=== PATIENT | male | born 1980 | race Two or more races ===

== ENCOUNTER 2020-10-26 16:52 | Inpatient (IN) | payer BC, OTHER ==
[~2020-10-26] VITALS: Ht 175.3 cm; Wt 99.4 kg
[2020-10-26] MEDS ORDERED: SODIUM CHLORIDE 0.9% 1,000 ML IV ONE ×2 (17:00)
[2020-10-26] MEDS ORDERED: IOHEXOL 300 MG/ML 100ML BOTTLE IJ ONE (17:37)
[2020-10-26 17:53] LABS: Basophils # (auto) 0.1 10 ^3/uL (0-0.2); Eosinophils # (auto) 0.1 10 ^3/uL (0-0.8); Lymphocytes # (auto) 1.4 10 ^3/uL (0.4-5.4); White Blood Cell 5.4 10^3/uL (4.4-10.8)
[2020-10-26 17:55] LABS: Basophils % (auto) 1.3 % (0.0-2.0); Eosinophils % (auto) 0.9 % (0.0-7.0); Hematocrit 13.2 % (41.0-53.0); Lymphocytes % (auto) 25.3 % (10.0-50.0); Mean Corpuscular Hemoglobin 14.1 pg (28.0-32.0); Mean Corpuscular Hgb Conc. 27.7 g/dL (32.0-36.0); Mean Corpuscular Volume 50.9 fL (80.0-100.0); Monocytes # (auto) 0.2 10 ^3/uL (0-1.3); Monocytes % (auto) 4.3 % (0.0-12.0); Neutrophils # (auto) 3.7 10 ^3/uL (1.6-8.6); Neutrophils % (auto) 68.2 % (37.0-80.0); Nucleated Red Blood Cells % 0.7 %; Red Blood Cells 2.59 10^6/uL (4.5-5.90)
[2020-10-26 18:07] LABS: Urine Bacteria NONE SEEN /hpf (None Seen); Urine Blood Negative /uL (Negative); Urine Specific Gravity 1.013 (1.001-1.035); Urine WBC <1 /hpf (0 - 3)
[2020-10-26 18:08] LABS: Alanine Aminotransferase 22 U/L (16-61); Albumin 3.5 g/dL (3.4-5.0); Anion Gap 7 (5-15); Aspartate Aminotransferase 16 U/L (15-37); Blood Urea Nitrogen 11 mg/dL (7-18); Calcium 8.1 mg/dL (8.5-10.1); Carbon Dioxide 21 mmol/L (21-32); Chloride 109 mmol/L (98-107); GFR African American 117 mL/min; GFR Non-African American 97 mL/min; Glucose 82 mg/dL (74-106); Potassium 3.9 mmol/L (3.5-5.1); Sodium 137 mmol/L (136-145)
[2020-10-26 18:11] LABS: Hemoglobin 3.7 g/dL (13.5-17.5)
[2020-10-26 18:13] LABS: Alkaline Phosphatase 29 U/L (45-117); Total Protein 6.5 g/dL (6.4-8.2)
[2020-10-26 18:25] LABS: INR 1.12 (0.9-1.15)
[2020-10-26 18:26] LABS: Partial Thromboplastin Time < 20.0 sec (23.0-31.2)
[2020-10-26] MEDS ORDERED: ACETAMINOPHEN 500 MG TAB PO PRN (19:00)
[2020-10-26] MEDS ORDERED: NITROGLYCERIN 0.4 MG SL TAB SL PRN (19:00)
[2020-10-26] MEDS ORDERED: MORPHINE SULFATE INJECTION 2 MG/ML SYRG IV PRN (19:00)
[2020-10-26] MEDS ORDERED: PANTOPRAZOLE 40 MG/10 ML VIAL INJ IV ONE (19:00)
[2020-10-26] MEDS: SODIUM CHLORIDE 0.9% 1,000 ML IV SCH (19:07)
[2020-10-26 20:52] VITALS: BP 123/44
[2020-10-26 21:18] VITALS: BP 135/45
[2020-10-26] MEDS: traMADol HCL 50 MG TAB PO PRN (21:26)
[2020-10-26 23:51] VITALS: BP 119/60
[2020-10-26 23:55] VITALS: BP 119/60
[2020-10-27] MEDS: PROMETHAZINE HCL 25 MG/ML 1ML IV PRN ×2 (00:10→06:24)
[2020-10-27 03:00] VITALS: BP 121/70
[2020-10-27 04:08] LABS: Hematocrit 17.8 % (41.0-53.0)
[2020-10-27 04:13] LABS: Hemoglobin 5.7 g/dL (13.5-17.5)
[2020-10-27 05:48] VITALS: BP 138/66
[2020-10-27 06:17] VITALS: BP 118/56
[2020-10-27] MEDS: SODIUM CHLORIDE 0.9% 1,000 ML IV SCH ×3 (06:24→18:38)
[2020-10-27 09:05] VITALS: BP 122/63
[2020-10-27 09:20] VITALS: BP 134/75
[2020-10-27] MEDS: PANTOPRAZOLE 40 MG TAB PO SCH ×2 (10:38→22:02)
[2020-10-27] MEDS ORDERED: GOLYTELY 4L KIT PO ONE (11:00)
[2020-10-27] MEDS ORDERED: METH750T22 PO (11:07)
[2020-10-27] MEDS ORDERED: LOSA-69 PO (11:07)
[2020-10-27] MEDS ORDERED: LISI20TA28 PO (11:07)
[2020-10-27] MEDS: traMADol HCL 50 MG TAB PO PRN (11:52)
[2020-10-27 13:14] LABS: Hemoglobin 7.9 g/dL (13.5-17.5)
[2020-10-27 13:16] LABS: Hematocrit 24.1 % (41.0-53.0)
[2020-10-27] MEDS: HYDROcodone-ACET 7.5/325MG TAB PO PRN (15:59)
[2020-10-27 22:00] VITALS: BP 143/90
[2020-10-28] VITALS (8 sets, daily range): BP systolic 120–141; BP diastolic 50–75
[2020-10-28] MEDS: SODIUM CHLORIDE 0.9% 1,000 ML IV SCH ×3 (03:38→18:40)
[2020-10-28] MEDS ORDERED: LIDOCAINE 2% (LOCAL ANESTH.) PF 5ml SDV ONE (08:23)
[2020-10-28] MEDS ORDERED: ONDANSETRON HCL 4 MG/2 ML VIAL ONE (08:23)
[2020-10-28] MEDS ORDERED: MIDAZOLAM HCL 2MG/2ML 2ml VIAL (1mg/ml) ONE (08:23)
[2020-10-28] MEDS ORDERED: fentaNYL CITRATE 100 MCG/2 ML VL ONE (08:23)
[2020-10-28] MEDS ORDERED: GLYCOPYRROLATE 0.2 MG/ML 1ML VIAL ONE (08:23)
[2020-10-28] MEDS ORDERED: PROPOFOL 10 MG/ML 20 ML IV ONE (08:23)
[2020-10-28] MEDS ORDERED: ONDANSETRON HCL 4 MG/2 ML VIAL IV PRN (09:15)
[2020-10-28] MEDS ORDERED: HYDROmorphone HCL 2 MG/ML VL IV PRN (09:15)
[2020-10-28] MEDS: HYDROcodone-ACET 7.5/325MG TAB PO PRN ×2 (11:34→17:44)
[2020-10-28 12:16] LABS: Eosinophils # (auto) 0.1 10 ^3/uL (0-0.8); Lymphocytes # (auto) 0.9 10 ^3/uL (0.4-5.4); Mean Corpuscular Volume 65.6 fL (80.0-100.0); Nucleated Red Blood Cells % 2.3 %; Red Blood Cells 3.24 10^6/uL (4.5-5.90); White Blood Cell 4.7 10^3/uL (4.4-10.8)
[2020-10-28 12:17] LABS: Basophils # (auto) 0 10 ^3/uL (0-0.2); Basophils % (auto) 0.9 % (0.0-2.0); Eosinophils % (auto) 2.9 % (0.0-7.0); Hematocrit 21.2 % (41.0-53.0); Lymphocytes % (auto) 19.5 % (10.0-50.0); Mean Corpuscular Hemoglobin 21.5 pg (28.0-32.0); Mean Corpuscular Hgb Conc. 32.8 g/dL (32.0-36.0); Monocytes # (auto) 0.3 10 ^3/uL (0-1.3); Monocytes % (auto) 5.8 % (0.0-12.0); Neutrophils # (auto) 3.3 10 ^3/uL (1.6-8.6); Neutrophils % (auto) 70.9 % (37.0-80.0)
[2020-10-28 12:20] LABS: Red Cell Distribution Width 36.8 % (11.8-14.3)
[2020-10-28 12:31] LABS: Albumin 3.3 g/dL (3.4-5.0); Calcium 7.3 mg/dL (8.5-10.1); Potassium 3.8 mmol/L (3.5-5.1)
[2020-10-28 12:35] LABS: BUN/Creatinine Ratio 8.3; Bilirubin, Total 1.3 mg/dL (0.2-1.0); Total Protein 5.8 g/dL (6.4-8.2)
[2020-10-29] MEDS: SODIUM CHLORIDE 0.9% 1,000 ML IV SCH (00:43)
[2020-10-29 05:06] VITALS: BP 142/73
[2020-10-29 05:43] LABS: Hemoglobin 7.5 g/dL (13.5-17.5); Lymphocytes # (auto) 1.4 10 ^3/uL (0.4-5.4); Mean Corpuscular Volume 68.1 fL (80.0-100.0)
[2020-10-29 05:47] LABS: Basophils # (auto) 0 10 ^3/uL (0-0.2); Basophils % (auto) 1.2 % (0.0-2.0); Eosinophils # (auto) 0.2 10 ^3/uL (0-0.8); Hematocrit 22.5 % (41.0-53.0); Lymphocytes % (auto) 35.3 % (10.0-50.0); Mean Corpuscular Hemoglobin 22.8 pg (28.0-32.0); Mean Corpuscular Hgb Conc. 33.5 g/dL (32.0-36.0); Monocytes # (auto) 0.2 10 ^3/uL (0-1.3); Monocytes % (auto) 6.1 % (0.0-12.0); Neutrophils % (auto) 51.4 % (37.0-80.0); Nucleated Red Blood Cells % 0.7 %; Red Blood Cells 3.31 10^6/uL (4.5-5.90)
[2020-10-29 05:58] LABS: Red Cell Distribution Width 36.3 % (11.8-14.3)
[2020-10-29] MEDS: HYDROcodone-ACET 7.5/325MG TAB PO PRN (08:01)
[2020-10-29 09:00] VITALS: BP 139/67
== END 2020-10-29 12:10 | disposition home or self-care (01) | DRG 378 ==
LOC: ER 16:52 → EDBD 16:52 → TELE 18:51 → WEST WING 10-27 14:25
PROVIDERS: ADMIT Internal Medicine; ATTEND Family Medicine
PROC: 30233N1 Transfusion of Nonautologous Red Blood Cells into Peripheral Vein, Percutaneous Approach (ICD-10-PCS; principal; 2020-10-26)
PROC: 0DBM8ZZ Excision of Descending Colon, Via Natural or Artificial Opening Endoscopic (ICD-10-PCS; 2020-10-28)
PROC: 0DJ08ZZ Inspection of Upper Intestinal Tract, Via Natural or Artificial Opening Endoscopic (ICD-10-PCS; 2020-10-28 08:29)
DX: K57.31 Diverticulosis of large intestine without perforation or abscess with bleeding (principal); D62 Acute posthemorrhagic anemia; I10 Essential (primary) hypertension; K40.20 Bilateral inguinal hernia, without obstruction or gangrene, not specified as recurrent; K63.5 Polyp of colon; K64.8 Other hemorrhoids; Z83.3 Family history of diabetes mellitus; Z87.19 Personal history of other diseases of the digestive system; Z20.822 Contact with and (suspected) exposure to COVID-19; E66.9 Obesity, unspecified; Z71.3 Dietary counseling and surveillance; Z68.33 Body mass index [BMI] 33.0-33.9, adult
CPT/HCPCS: 36415; 71045; 74177; 80053; 81001; 82270; 82378; 84484; 85014; 85018; 85025; 85045; 85049; 85610; 85652; 85730; 86850; 86900; 86901; 86920; 87426; 93005; 96360; 96361; C9113; G0378; J2001; J2250; J2405; J2704

== ENCOUNTER 2023-02-16 15:37 | Inpatient (IN) | payer BC, MEDICAID ==
[~2023-02-16] VITALS: Ht 175.3 cm; Wt 101.8 kg
[2023-02-16] MEDS: SODIUM CHLORIDE 0.9% 1,000 ML IV SCH (05:00)
[~2023-02-16 15:37] MED LIST: LISI20TA56 PO; LOSA50TA46 PO; METH-1182 PO
[2023-02-16 16:32] LABS: Alanine Aminotransferase 21 U/L (7-40); Albumin 4.4 g/dL (3.2-4.8); Alkaline Phosphatase 44 U/L (46-116); Anion Gap 6 (5-15); Aspartate Aminotransferase 16 U/L (13-40); BUN/Creatinine Ratio 13.8 (10.0-20.0); Blood Urea Nitrogen 12 mg/dL (9-23); Calcium 8.8 mg/dL (8.5-10.1); Carbon Dioxide 25 mmol/L (20-30); Chloride 108 mmol/L (98-107); Glucose 86 mg/dL (74-106); Potassium 4.4 mmol/L (3.5-5.1); Sodium 139 mmol/L (136-145)
[2023-02-16 16:33] LABS: Bilirubin, Total 0.8 mg/dL (0.2-1.0); Total Protein 6.3 g/dL (5.7-8.2)
[2023-02-16 16:48] LABS: Basophils # (auto) 0.1 10 ^3/uL (0-0.2); Basophils % (auto) 1.5 % (0.0-2.0); Eosinophils # (auto) 0.1 10 ^3/uL (0-0.8); Eosinophils % (auto) 2.3 % (0.0-7.0); Hematocrit 22.4 % (41.0-53.0); Mean Corpuscular Hemoglobin 22.5 pg (28.0-32.0); Mean Corpuscular Hgb Conc. 29.2 g/dL (32.0-36.0); Mean Corpuscular Volume 76.9 fL (80.0-100.0); Monocytes # (auto) 0.4 10 ^3/uL (0-1.3); Monocytes % (auto) 8.3 % (0.0-12.0); Neutrophils # (auto) 2.7 10 ^3/uL (1.6-8.6); Neutrophils % (auto) 63.9 % (37.0-80.0); Nucleated Red Blood Cells % 0.6 %; Red Blood Cells 2.92 10^6/uL (4.5-5.90); Red Cell Distribution Width 18.9 % (11.8-14.3); White Blood Cell 4.3 10^3/uL (4.4-10.8)
[2023-02-16 16:54] LABS: Hemoglobin 6.6 g/dL (13.5-17.5)
[2023-02-16] MEDS ORDERED: PANTOPRAZOLE 40 MG/10 ML VIAL INJ IV ONE ×2 (17:15→20:20)
[2023-02-16 17:25] LABS: Urine Bacteria NONE SEEN /hpf (None Seen); Urine Blood Negative /uL (Negative); Urine Clarity Clear (Clear); Urine Color Colorless (Yellow); Urine Mucus FEW (None Seen); Urine Protein, UAD Negative (Negative); Urine Urobilinogen Normal (Negative); Urine WBC <1 /hpf (0 - 3); Urine pH 6.5 (5.0-8.0)
[2023-02-16 17:28] LABS: Triglycerides 206 mg/dL (< 150)
[2023-02-16 17:29] LABS: LDL Cholesterol 75 mg/dL (< 100)
[2023-02-16 17:30] LABS: % Iron Saturation 2.8 % (20-55); Cholesterol 132 mg/dL (< 200); HDL Cholesterol 37 mg/dL (40-59)
[2023-02-16] MEDS ORDERED: PANTOPRAZOLE 40mg/50ML NS AE 50 ML IV ONE (17:30)
[2023-02-16] MEDS ORDERED: NITROGLYCERIN 0.4 MG SL TAB SL PRN (17:30)
[2023-02-16] MEDS ORDERED: ACETAMINOPHEN 325 MG TAB PO PRN (17:30)
[2023-02-16] MEDS ORDERED: PANTOPRAZOLE 80 MG in SODIUM CHL 0.9% 100 ML IV ONE (17:30)
[2023-02-16 17:49] LABS: Anisocytosis Slight; Hypochromia Moderate; Polychromasia Slight
[2023-02-16 17:50] LABS: Large Platelets FEW; Ovalocytes FEW; Platelet Estimate Adequa
[2023-02-16] MEDS: HYDROcodone-ACET 5/325MG TAB PO PRN ×2 (19:35→23:56)
[2023-02-16 21:05] VITALS: BP 126/69; PULSE 80; RESP 16; TEMP 98.3
[2023-02-16 21:22] VITALS: BP 130/69; PULSE 77; RESP 16; TEMP 98
[2023-02-16 21:30] VITALS: PULSE 66; RESP 16; O2SAT 96
[2023-02-16 23:15] VITALS: BP 133/83; PULSE 67; RESP 18; TEMP 98.3
[2023-02-16 23:30] VITALS: BP 124/73; PULSE 66; RESP 18; TEMP 98.3
[2023-02-16 23:45] VITALS: BP 118/65; PULSE 65; RESP 17; TEMP 98.9
[2023-02-17 02:15] VITALS: BP 119/69; PULSE 70; RESP 13; TEMP 98.3
[2023-02-17 02:45] LABS: Basophils # (auto) 0.1 10 ^3/uL (0-0.2); Eosinophils # (auto) 0.1 10 ^3/uL (0-0.8); Hematocrit 24.2 % (41.0-53.0); Lymphocytes # (auto) 1.3 10 ^3/uL (0.4-5.4); Mean Corpuscular Volume 78.4 fL (80.0-100.0); Monocytes # (auto) 0.3 10 ^3/uL (0-1.3); Monocytes % (auto) 7.8 % (0.0-12.0)
[2023-02-17 02:47] LABS: Basophils % (auto) 1.4 % (0.0-2.0); Eosinophils % (auto) 3.6 % (0.0-7.0); Hemoglobin 7.2 g/dL (13.5-17.5); Lymphocytes % (auto) 34.1 % (10.0-50.0); Mean Corpuscular Hemoglobin 23.5 pg (28.0-32.0); Neutrophils % (auto) 53.1 % (37.0-80.0); Nucleated Red Blood Cells % 0.4 %; Red Blood Cells 3.08 10^6/uL (4.5-5.90); Red Cell Distribution Width 19.1 % (11.8-14.3); White Blood Cell 3.7 10^3/uL (4.4-10.8)
[2023-02-17] MEDS: MORPHINE SULFATE INJ 2 MG/ml SYRG IV PRN ×3 (02:52→23:06)
[2023-02-17] MEDS: PANTOPRAZOLE 40mg/50ML NS AE 50 ML IV SCH ×5 (02:52→22:28)
[2023-02-17] MEDS: ONDANSETRON HCL 4 MG/2 ML VIAL IV PRN ×3 (03:12→23:06)
[2023-02-17 06:31] LABS: Basophils # (auto) 0 10 ^3/uL (0-0.2); Eosinophils # (auto) 0.1 10 ^3/uL (0-0.8); Mean Corpuscular Hgb Conc. 30.8 g/dL (32.0-36.0); Monocytes # (auto) 0.2 10 ^3/uL (0-1.3); Neutrophils # (auto) 1.8 10 ^3/uL (1.6-8.6)
[2023-02-17 06:34] LABS: Basophils % (auto) 1.2 % (0.0-2.0); Eosinophils % (auto) 3.5 % (0.0-7.0); Hemoglobin 7.4 g/dL (13.5-17.5); Lymphocytes % (auto) 32.6 % (10.0-50.0); Mean Corpuscular Volume 77.9 fL (80.0-100.0); Monocytes % (auto) 6.8 % (0.0-12.0); Neutrophils % (auto) 55.9 % (37.0-80.0); Nucleated Red Blood Cells % 0.4 %; Red Blood Cells 3.08 10^6/uL (4.5-5.90); Red Cell Distribution Width 18.7 % (11.8-14.3); White Blood Cell 3.1 10^3/uL (4.4-10.8)
[2023-02-17 06:48] LABS: Alanine Aminotransferase 17 U/L (7-40); Albumin 3.9 g/dL (3.2-4.8); Alkaline Phosphatase 39 U/L (46-116); Anion Gap 9 (5-15); Aspartate Aminotransferase < 8 U/L (13-40); BUN/Creatinine Ratio 10.2 (10.0-20.0); Blood Urea Nitrogen 9 mg/dL (9-23); Calcium 8.6 mg/dL (8.7-10.4); Carbon Dioxide 23 mmol/L (20-30); Chloride 107 mmol/L (98-107); Glucose 89 mg/dL (74-106); Potassium 4.5 mmol/L (3.5-5.1); Sodium 139 mmol/L (136-145)
[2023-02-17 06:49] LABS: Bilirubin, Total 0.9 mg/dL (0.2-1.0); Total Protein 5.9 g/dL (5.7-8.2)
[2023-02-17] MEDS: SODIUM CHLORIDE 0.9% 1,000 ML IV SCH (06:50)
[2023-02-17] MEDS: LOSARTAN POTASSIUM 50 MG TAB PO SCH (09:53)
[2023-02-17] MEDS: HYDROcodone-ACET 5/325MG TAB PO PRN (09:53)
[2023-02-17] MEDS ORDERED: LISINOPRIL 20 MG TAB PO SCH (10:00)
[2023-02-17] MEDS ORDERED: PANTOPRAZOLE 40 MG/10 ML VIAL INJ IV SCH (10:00)
[2023-02-17 11:25] LABS: Folate (Folic Acid) > 24.00 ng/mL (>5.38)
[2023-02-17 15:13] LABS: Basophils # (auto) 0.1 10 ^3/uL (0-0.2); Basophils % (auto) 1.6 % (0.0-2.0); Eosinophils # (auto) 0.1 10 ^3/uL (0-0.8); Eosinophils % (auto) 3.7 % (0.0-7.0); Hematocrit 24.5 % (41.0-53.0); Hemoglobin 7.5 g/dL (13.5-17.5); Lymphocytes % (auto) 30.1 % (10.0-50.0); Mean Corpuscular Hemoglobin 23.6 pg (28.0-32.0); Mean Corpuscular Hgb Conc. 30.8 g/dL (32.0-36.0); Mean Corpuscular Volume 76.7 fL (80.0-100.0); Monocytes # (auto) 0.2 10 ^3/uL (0-1.3); Monocytes % (auto) 5.6 % (0.0-12.0); Nucleated Red Blood Cells % 0.6 %; Red Blood Cells 3.19 10^6/uL (4.5-5.90); Red Cell Distribution Width 19.4 % (11.8-14.3); White Blood Cell 3.4 10^3/uL (4.4-10.8)
[2023-02-17 19:15] VITALS: PULSE 68; RESP 18; O2SAT 98
[2023-02-17 21:34] LABS: Basophils # (auto) 0 10 ^3/uL (0-0.2); Eosinophils # (auto) 0.2 10 ^3/uL (0-0.8); Lymphocytes # (auto) 1.1 10 ^3/uL (0.4-5.4); Monocytes # (auto) 0.3 10 ^3/uL (0-1.3)
[2023-02-17 21:37] LABS: Basophils % (auto) 1.3 % (0.0-2.0); Eosinophils % (auto) 4.7 % (0.0-7.0); Hematocrit 26.3 % (41.0-53.0); Mean Corpuscular Hemoglobin 23.9 pg (28.0-32.0); Mean Corpuscular Hgb Conc. 30.5 g/dL (32.0-36.0); Mean Corpuscular Volume 78.3 fL (80.0-100.0); Neutrophils # (auto) 2.1 10 ^3/uL (1.6-8.6); Nucleated Red Blood Cells % 0.6 %; Red Blood Cells 3.36 10^6/uL (4.5-5.90); Red Cell Distribution Width 18.9 % (11.8-14.3); White Blood Cell 3.8 10^3/uL (4.4-10.8)
[2023-02-17 22:28] VITALS: BP 125/77; PULSE 67; RESP 18; TEMP 98.7; O2SAT 97
[2023-02-18] MEDS: PANTOPRAZOLE 40mg/50ML NS AE 50 ML IV SCH ×3 (01:49→14:37)
[2023-02-18 05:00] VITALS: BP 118/60; PULSE 63; RESP 16; TEMP 97.6; O2SAT 95
[2023-02-18 06:04] LABS: Basophils # (auto) 0 10 ^3/uL (0-0.2); Eosinophils # (auto) 0.2 10 ^3/uL (0-0.8); Eosinophils % (auto) 5.1 % (0.0-7.0); Hematocrit 27.3 % (41.0-53.0); Hemoglobin 8.4 g/dL (13.5-17.5); Lymphocytes # (auto) 0.8 10 ^3/uL (0.4-5.4); Lymphocytes % (auto) 21.4 % (10.0-50.0); Mean Corpuscular Hemoglobin 24.2 pg (28.0-32.0); Mean Corpuscular Hgb Conc. 30.8 g/dL (32.0-36.0); Mean Corpuscular Volume 78.7 fL (80.0-100.0); Monocytes # (auto) 0.2 10 ^3/uL (0-1.3); Monocytes % (auto) 5.7 % (0.0-12.0); Neutrophils # (auto) 2.6 10 ^3/uL (1.6-8.6); Neutrophils % (auto) 66.8 % (37.0-80.0); Nucleated Red Blood Cells % 0.4 %; Red Blood Cells 3.47 10^6/uL (4.5-5.90); Red Cell Distribution Width 19.7 % (11.8-14.3); White Blood Cell 3.9 10^3/uL (4.4-10.8)
[2023-02-18 06:40] LABS: Alanine Aminotransferase 14 U/L (7-40); Albumin 4.2 g/dL (3.2-4.8); Alkaline Phosphatase 42 U/L (46-116); Anion Gap 10 (5-15); Aspartate Aminotransferase 8 U/L (13-40); BUN/Creatinine Ratio 8.6 (10.0-20.0); Blood Urea Nitrogen 8 mg/dL (9-23); Calcium 9.1 mg/dL (8.7-10.4); Carbon Dioxide 24 mmol/L (20-30); Chloride 105 mmol/L (98-107); Glucose 86 mg/dL (74-106); Potassium 4.3 mmol/L (3.5-5.1); Sodium 139 mmol/L (136-145)
[2023-02-18 06:41] LABS: Total Protein 6.3 g/dL (5.7-8.2)
[2023-02-18 08:00] VITALS: BP 121/54; PULSE 72; PULSE 73; RESP 20; TEMP 97.4; O2SAT 94
[2023-02-18] MEDS: MORPHINE SULFATE INJ 2 MG/ml SYRG IV PRN ×3 (08:00→21:03)
[2023-02-18] MEDS: LOSARTAN POTASSIUM 50 MG TAB PO SCH (10:42)
[2023-02-18 12:00] VITALS: BP 111/52; PULSE 64; RESP 20; TEMP 98.1; O2SAT 98
[2023-02-18 16:00] VITALS: BP 133/75; PULSE 55; RESP 20; TEMP 98; O2SAT 100
[2023-02-18 20:00] VITALS: PULSE 78; PULSE 81; RESP 18
[2023-02-18] MEDS: PANTOPRAZOLE 40 MG/10 ML VIAL INJ IV SCH (21:02)
[2023-02-18] MEDS ORDERED: SODIUM FERR GLUC 62.5MG/5ML 125 MG in SODIUM CHL 0.9% 100 ML IV ONE (21:45)
[2023-02-18 22:00] VITALS: BP 126/45; PULSE 79; RESP 18; TEMP 98.5; O2SAT 93
[2023-02-19 05:00] VITALS: BP 109/54; PULSE 70; RESP 18; TEMP 97.8; O2SAT 96
[2023-02-19 05:58] LABS: Basophils # (auto) 0.1 10 ^3/uL (0-0.2); Eosinophils # (auto) 0.2 10 ^3/uL (0-0.8); Hemoglobin 8.5 g/dL (13.5-17.5); Monocytes # (auto) 0.2 10 ^3/uL (0-1.3); Monocytes % (auto) 6.3 % (0.0-12.0); Neutrophils # (auto) 2.2 10 ^3/uL (1.6-8.6); White Blood Cell 3.6 10^3/uL (4.4-10.8)
[2023-02-19 06:01] LABS: Basophils % (auto) 1.5 % (0.0-2.0); Hematocrit 27.4 % (41.0-53.0); Lymphocytes % (auto) 26.9 % (10.0-50.0); Mean Corpuscular Hemoglobin 23.9 pg (28.0-32.0); Mean Corpuscular Hgb Conc. 30.9 g/dL (32.0-36.0); Mean Corpuscular Volume 77.4 fL (80.0-100.0); Neutrophils % (auto) 60.3 % (37.0-80.0); Nucleated Red Blood Cells % 0.4 %; Red Blood Cells 3.54 10^6/uL (4.5-5.90); Red Cell Distribution Width 19.3 % (11.8-14.3)
[2023-02-19 08:00] VITALS: BP 99/61; PULSE 60; RESP 20; TEMP 97.7; O2SAT 95
[2023-02-19] MEDS ORDERED: PANT40TA2 PO (09:28)
[2023-02-19] MEDS: LOSARTAN POTASSIUM 50 MG TAB PO SCH (10:00)
[2023-02-19] MEDS: PANTOPRAZOLE 40 MG/10 ML VIAL INJ IV SCH (10:05)
[2023-02-19 12:00] VITALS: BP 120/47; PULSE 65; RESP 20; TEMP 97.8; O2SAT 98
[2023-02-19 14:35] VITALS: BP 120/47; PULSE 65; RESP 20; TEMP 97.8; O2SAT 98
[2023-02-19 16:00] VITALS: BP 120/77; PULSE 74; RESP 20; TEMP 97.8; O2SAT 93
== END 2023-02-19 16:35 | disposition home or self-care (01) | DRG 378 ==
LOC: ER 15:37 → TELE 17:22 → TELE-CENTR 02-17 21:38
PROVIDERS: ADMIT Nurse Practitioner Family; ATTEND Internal Medicine Geriatric Medicine
PROC: 30233N1 Transfusion of Nonautologous Red Blood Cells into Peripheral Vein, Percutaneous Approach (ICD-10-PCS; principal; 2023-02-16)
DX: K92.2 Gastrointestinal hemorrhage, unspecified (principal); D62 Acute posthemorrhagic anemia; E66.01 Morbid (severe) obesity due to excess calories; I10 Essential (primary) hypertension; Z82.3 Family history of stroke; Z83.3 Family history of diabetes mellitus; Z82.49 Family history of ischemic heart disease and other diseases of the circulatory system; Z87.19 Personal history of other diseases of the digestive system; Z68.33 Body mass index [BMI] 33.0-33.9, adult
CPT/HCPCS: 36415; 36430; 74176; 80053; 80061; 81001; 82607; 82746; 83540; 83550; 84443; 84484; 85025; 86850; 86900; 86901; 86920; 96365; 96375; C9113; G0378; J2405